=== PATIENT | male | born 1945 | race Caucasian/White ===

== ENCOUNTER 2016-07-10 10:38 | Emergency (ER) | payer OTHER ==
[~2016-07-10 10:38] MED LIST: ALLOPURINOL300 MG PO; AUGMENTIN 875-1 EACH PO; BIAXIN500 MG PO; IBUPROFEN800 MG PO; JANUMET 50-1,01 EACH PO; MAGOX 400400 MG PO; MICRO-K10 MEQ PO; OMEPRAZOLE40 MG PO; TOPROL XL100 MG PO; ZOLOFT50 MG PO
[2016-07-10 11:33] LABS: INR 0.97 (0.9-1.2); PROTHROMBIN TIME 12.5 SECONDS (11.7-14.0); PTT 20.4 SECONDS (23.2-31.4)
[2016-07-10 11:38] LABS: ALBUMIN 4.1 g/dL (3.4-4.8); BILIRUBIN - TOTAL 0.9 mg/dL (0.1-1.0); CREATININE 0.9 mg/dL (0.7-1.2); GLOBULIN (CALCULATION) 2.9 g/dL (2.2-4.2); POTASSIUM 4.1 mmol/L (3.5-5.1)
[2016-07-10 11:39] LABS: MYOGLOBIN 21 ng/mL (26-65); TROPONIN T < 0.010 ng/mL
[2016-07-10 12:05] LABS: BASOPHIL 0.6 % (0-2); EOSINOPHIL 5.8 % (0-7); HCT 42.5 % (42.0-52.0); HGB 15.5 g/dl (13.2-18.0); LYMPHOCYTE 22.9 % (15-48); MCH 31.3 pg (25.0-31.0); MCHC 36.5 g/dL (32.0-36.0); MCV 85.9 fL (78.0-100.0); MONOCYTE 6.1 % (0-12); MPV 10.6 fL (6.0-9.5); NEUTROPHIL 64.6 % (41-80); PLT 186 K/uL (150-400); RBC 4.95 M/uL (4.70-6.00); RDW 12.4 % (11.5-14.0); WBC 6.6 K/uL (4.0-10.5)
== END 2016-07-10 12:02 | disposition other institution (70) ==
LOC: FER 10:38
PROVIDERS: Emergency Medicine
DX: I62.9 Nontraumatic intracranial hemorrhage, unspecified (principal); R29.810 Facial weakness; R20.2 Paresthesia of skin; G81.90 Hemiplegia, unspecified affecting unspecified side; I42.9 Cardiomyopathy, unspecified
CPT/HCPCS: 36415; 70450; 71010; 80053; 80061; 82550; 82553; 83874; 84484; 85025; 85610; 85730; 93005